=== PATIENT | male | born 1945 | race Caucasian/White ===

== ENCOUNTER 2022-03-19 06:08 | Day surgery (SDC) | payer MEDICARE, OTHER ==
[~2022-03-19] VITALS: Ht 170.2 cm; Wt 102.5 kg
[2022-03-19] VITALS (10 sets, daily range): BP systolic 107–144; BP diastolic 74–95
[~2022-03-19 06:08] MED LIST: BENA20TA82 PO; ENOX40DI11 SQ
[2022-03-19] MEDS ORDERED: ASPI81TA52 PO (06:43)
[2022-03-19] MEDS ORDERED: AMLO5TAB16 PO (06:43)
[2022-03-19] MEDS ORDERED: magnesium PO (06:43)
[2022-03-19] MEDS ORDERED: MULT-620 PO (06:43)
[2022-03-19] MEDS ORDERED: OMEG1CAP13 PO (06:43)
[2022-03-19] MEDS ORDERED: CALC-336 PO (06:43)
[2022-03-19] MEDS ORDERED: ceFAZolin inj. 2,000 MG in dextrose 5%-water 100 ML IV ONE (06:46)
[2022-03-19] MEDS ORDERED: normal saline 1000ml 1,000 ML IV SCH ×2 (06:47→10:51)
[2022-03-19 07:39] LABS: BASOPHILS % (AUTO) 0.7 % (0-1); EOSINOPHILS # (AUTO) 0.2 X10'3 (0-0.9); EOSINOPHILS % (AUTO) 4.7 % (0-6); HEMATOCRIT 38.2 % (42.0-52.0); HEMOGLOBIN 12.9 g/dl (14.0-17.9); LYMPHOCYTES # (AUTO) 1.7 X10'3 (1.1-4.8); LYMPHOCYTES % (AUTO) 33.7 % (21-51); MEAN CORPUSCULAR HEMOGLOBIN 31.9 PG (27.0-31.0); MEAN CORPUSCULAR HGB CONC 33.8 g/dL (33.0-36.5); MEAN CORPUSCULAR VOLUME 94.5 FL (78-98); MEAN PLATELET VOLUME 9.8 FL (7.4-10.4); MONOCYTES # (AUTO) 0.5 X10'3 (0-0.9); MONOCYTES % (AUTO) 10.6 % (2-12); NEUTROPHILS # (AUTO) 2.5 X10'3 (1.8-7.7); NEUTROPHILS % (AUTO) 50.3 % (42-75); PLATELET COUNT 182 X10'3 (140-440); RED BLOOD COUNT 4.04 X10'6 (4.70-6.10); RED CELL DISTRIBUTION WIDTH 14.8 % (11.5-14.5)
[2022-03-19 07:46] LABS: ALBUMIN 3.4 G/DL (3.4-5.0); ANION GAP 13 (8-16); BLOOD UREA NITROGEN 20 MG/DL (7-18); BUN/CREATININE RATIO 22.7 (5.4-32.0); CALCIUM 8.5 MG/DL (8.5-10.1); CHLORIDE 110 MMOL/L (99-107); CREATININE 0.88 MG/DL (0.60-1.10); GLUCOSE 100 MG/DL (70-104); POTASSIUM 4.1 MMOL/L (3.5-5.1); SODIUM 148 MMOL/L (135-145); TOTAL CARBON DIOXIDE 25.3 MMOL/L (24-32); eGFR 84 ML/MIN
[2022-03-19 07:50] LABS: APTT 27 SECONDS (22-32)
[2022-03-19] MEDS ORDERED: ceFAZolin 1000mg inj ONE (07:54)
[2022-03-19] MEDS ORDERED: LIDOcaine 1% W/epiNEPHrine 1:100,000 20ml vial ONE ×2 (07:54→08:49)
[2022-03-19] MEDS ORDERED: fentaNYL/PF 50MCG/1 ML 2ML syringe ONE ×2 (07:54→09:33)
[2022-03-19] MEDS ORDERED: midazolam 1 mg/ML 2ml injection ONE ×3 (07:54→09:33)
--- NOTE | 2022-03-19 10:26 | NUR ---
Received in report that pt was given Ancef in the research laboratory manager.
--- NOTE | 2022-03-19 10:29 | NUR ---
Pt NS has been infusing as ordered.
--- NOTE | 2022-03-19 10:31 | NUR ---
Pt was given OJ as requested, pt refused breakfast at this time. He states he will "page" me when he is ready to eat. Pt denies N/V. States he feels "a bit sleepy".
[2022-03-19] MEDS ORDERED: vancomycin/NS 1 GM in NS 250 ML IV ONE (11:00)
--- NOTE | 2022-03-19 11:04 | NUR ---
Pt left unit for ordered CXR.
[2022-03-19] MEDS ORDERED: HYDROcodone/acetaminophen 5mg/325mg tablet PO PRN (11:25)
[2022-03-19] MEDS ORDERED: HYDROcodone/acetaminophen 10/325mg tab PO PRN (11:25)
--- NOTE | 2022-03-19 11:33 | NUR ---
Pt was given pain medication as prescribed. Ice pack applied to left shoulder. Left arm supported by pillow. Pt states he is "more comfortable".
[2022-03-19] MEDS ORDERED: diphenhydrAMINE 25mg capsule PO STA (11:57)
--- NOTE | 2022-03-19 12:10 | NUR ---
Pt complaint of itching on head and back after the start of IV antibiotic. MD notified. New order given.
[2022-03-19] MEDS ORDERED: morphine 2 MG/ML inj. syringe IV ONE (12:15)
--- NOTE | 2022-03-19 12:27 | NUR ---
Held pressure to pacemaker site for 15min. Minimal drainage to dressing. Site soft, no ecchymosis. Pressure dressing reinforced.
--- NOTE | 2022-03-19 12:30 | NUR ---
MD at bedside. Pt complaint of 10/10 pain. New order for pain medication given.
[2022-03-19] MEDS ORDERED: HYDROmorphone inj. 0.5 MG/0.5 ML DISP.SYRIN IV ONE (12:45)
--- NOTE | 2022-03-19 12:45 | NUR ---
Yusef RAMOS and Isabell RAMOS at bedside assessing pacemaker site. New pain medication order to be administered.
[2022-03-19] MEDS ORDERED: ketorolac trometh inj. 60 MG/2 ML VIAL IM ONE (13:05)
[2022-03-19] MEDS ORDERED: HYDROmorphone inj. 0.5 MG/0.5 ML DISP.SYRIN IV SCH (13:15)
--- NOTE | 2022-03-19 14:48 | NUR ---
Pt sitting up in a wheelchair. Pt denies pain 0/10. Left arm in sling, DRSG to left shoulder with a minimal amount of drainage. Yusef RN redressed pressure dressing to site earlier in the shift. Pt ate 100% of lunch tray. Voided 450ml clear yellow. Pt is requesting to be able to go home. States he is feeling "much better".
--- NOTE | 2022-03-19 15:21 | NUR ---
contacted MD per pt request to received discharge time. MD speaking to pt by cell phone now.
== END 2022-03-19 16:00 | disposition home or self-care (01) ==
LOC: SSTAY O 06:08
PROVIDERS: ATTEND Internal Medicine Cardiovascular Disease
DX: I49.5 Sick sinus syndrome (principal); I10 Essential (primary) hypertension; G47.30 Sleep apnea, unspecified; Z79.899 Other long term (current) drug therapy; F43.10 Post-traumatic stress disorder, unspecified; Z98.890 Other specified postprocedural states; Z79.01 Long term (current) use of anticoagulants; Z90.49 Acquired absence of other specified parts of digestive tract; Z96.612 Presence of left artificial shoulder joint; Z96.652 Presence of left artificial knee joint; Z96.649 Presence of unspecified artificial hip joint
CPT/HCPCS: 33208; 36415; 71046; 80048; 85025; 85610; 85730; 93005; 99152; 99153; C1785; C1894; C1898; J0690; J1885; J2250; J2270; J3010; J3490; J7030; Q0163; A4565; A4620; A6258; A6449; C1786